=== PATIENT | male | born 1960 | race Caucasian/White ===

== ENCOUNTER → 2017-02-25 | Outpatient (CLI) | payer BC ==
[~2017-02-25] MED LIST: LOSA50TA20 PO; PANT40TA2 PO
[2017-02-25 08:01] LABS: MEAN CORPUSCULAR HGB CONC 33.2 g/dl (32.0-36.5); MEAN CORPUSCULAR VOLUME 99.5 fl (80.0-96.0); RED CELL DISTRIBUTION WIDTH 12.9 % (11.5-14.5); WHITE BLOOD COUNT 8.4 K/mm3 (4.0-10.0)
[2017-02-25 08:42] LABS: ALBUMIN 3.7 GM/DL (3.2-5.2); ALBUMIN/GLOBULIN RATIO 1.03 (1.00-1.93); ALKALINE PHOSPHATASE 247 U/L (45-117); ALT/SGPT 35 U/L (12-78); ANION GAP 3 MEQ/L (8-16); AST/SGOT 17 U/L (15-37); BILIRUBIN,TOTAL 0.5 MG/DL (0.2-1.0); BLOOD UREA NITROGEN 8 MG/DL (7-18); CALCIUM LEVEL 8.8 MG/DL (8.5-10.1); CARBON DIOXIDE LEVEL 32 MEQ/L (21-32); CHLORIDE LEVEL 105 MEQ/L (98-107); CHOLESTEROL LEVEL 199 MG/DL (<200); CREATININE FOR GFR 0.92 MG/DL (0.70-1.30); GLOMERULAR FILTRATION RATE > 60.0 (>56); GLUCOSE, FASTING 109 MG/DL (70-105); POTASSIUM SERUM 4.1 MEQ/L (3.5-5.1); SODIUM LEVEL 140 MEQ/L (136-145); TOTAL PROTEIN 7.3 GM/DL (6.4-8.2); TRIGLYCERIDES LEVEL 161 MG/DL (<150)
--- NOTE | 2017-02-25 08:51 | REP ---
Clinical: Annual health screening . Comparison: 01/29/2014 . Technique: PA and lateral. Findings: The mediastinum and cardiac silhouette are normal. The lung swartz are clear and without acute consolidation, effusion, or pneumothorax. The skeletal structures are intact and normal. Impression: 1. No acute cardiopulmonary process. Signed by Thomas Vasquez MD 02/25/2017 08:42 A
--- NOTE | 2017-02-25 13:54 | ECGEPIP ---
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
== END ==
LOC: M LAB 07:43
PROVIDERS: ATTEND Family Medicine
DX: I10 Essential (primary) hypertension (principal); N40.0 Benign prostatic hyperplasia without lower urinary tract symptoms; R53.83 Other fatigue

== ENCOUNTER 2017-06-13 08:56 | Outpatient (CLI) | payer BC ==
[~2017-06-13] VITALS: Ht 177.8 cm; Wt 86.2 kg
[2017-06-13] MEDS ORDERED: NS 1,000 ML IV ONE (09:15)
[2017-06-13] MEDS ORDERED: LIDOCAINE 2% INJ 100 MG/5 ML SDV (FOR ANES.) As Ordered ONE (10:01)
[2017-06-13] MEDS ORDERED: PROPOFOL 200 MG/20 ML VIAL As Ordered ONE (10:01)
--- NOTE | 2017-06-13 10:19 | ROOR ---
Patient Name: Fernnado Eckert Procedure Date: 06/13/2017 9:56 AM Date of : 1960 Age: 57 Room: [facility] Gender: Male Note Status: Finalized Procedure: Total Colonoscopy to Cecum Indications: Screening for colorectal malignant neoplasm Providers: Emir Bains MD Referring MD: JASWANT LE MD Requesting Provider: Medicines: Monitored Anesthesia Care Complications: No immediate complications. Procedure: Pre-Anesthesia Assessment: - The heart rate, respiratory rate, oxygen saturations, blood pressure, adequacy of pulmonary ventilation, and response to care were monitored throughout the procedure. The Colonoscope was introduced through the anus and advanced to the cecum, identified by appendiceal orifice and ileocecal valve. The colonoscopy was performed without difficulty. The patient tolerated the procedure well. The quality of the bowel preparation was excellent. Findings: The perianal and digital rectal examinations were normal. Non-bleeding internal hemorrhoids were found during retroflexion. The hemorrhoids were small and Grade I (internal hemorrhoids that do not prolapse). Scattered small-mouthed diverticula were found in the recto-sigmoid colon, sigmoid colon and descending colon. The exam was otherwise without abnormality on direct and retroflexion views. Impression: - Non-bleeding internal hemorrhoids. - Diverticulosis in the recto-sigmoid colon, in the sigmoid colon and in the descending colon. - The examination was otherwise normal on direct and retroflexion views. - No specimens collected. - The exam was otherwise normal to the cecum. Recommendation: - Patient has a contact number available for emergencies. The signs and symptoms of potential delayed complications were discussed with the patient. Return to normal activities tomorrow. Written discharge instructions were provided to the patient. - High fiber diet. - Discharge patient to home. - Continue present medications. - Repeat colonoscopy in 10 years for screening purposes. - Return to referring physician. - The findings and recommendations were discussed with the patient's family. Emir Bains MD Emir Bains MD 06/13/2017 10:18:58 AM This report has been signed electronically. Number of Addenda: 0 Note Initiated On: 06/13/2017 9:56 AM Estimated Blood Loss: Estimated blood loss: none.
[2017-06-13 10:38] VITALS: BP 133/79
== END 2017-06-13 10:41 | disposition home or self-care (01) ==
LOC: M OPP 08:56
PROVIDERS: ATTEND Internal Medicine Gastroenterology
DX: Z12.11 Encounter for screening for malignant neoplasm of colon (principal); K64.0 First degree hemorrhoids; K57.30 Diverticulosis of large intestine without perforation or abscess without bleeding; I10 Essential (primary) hypertension; R12 Heartburn; J42 Unspecified chronic bronchitis; R06.2 Wheezing; K82.9 Disease of gallbladder, unspecified; Z79.899 Other long term (current) drug therapy

== ENCOUNTER → 2019-06-29 | Outpatient (CLI) | payer BC ==
[~2019-06-29] MED LIST changes: -LOSA50TA20 PO; +LOSA50TA88 PO; -PANT40TA2 PO; +PANT40TA3 PO
--- NOTE | 2019-06-29 09:02 | REP ---
Two-view chest: 06/29/2019. Indication: Dyspnea. Cough. Comparison: 02/25/2017. Findings: The lungs are clear. There is no pleural effusion or pneumothorax. There is mild straightening of the thoracic kyphosis. The cardiomediastinal silhouette is unremarkable. Impression: Clear lungs. Electronically Signed by Aryan Thomas DO 06/29/2019 08:54 A
[2019-06-29 09:34] LABS: HEMATOCRIT 49.5 % (42.0-52.0); HEMOGLOBIN 15.9 g/dl (13.5-17.5); MEAN CORPUSCULAR HEMOGLOBIN 33.5 pg (27.0-33.0); MEAN CORPUSCULAR HGB CONC 32.1 g/dl (32.0-36.5); MEAN CORPUSCULAR VOLUME 104.2 fl (80.0-96.0); PLATELET COUNT, AUTOMATED 271 10^3/uL (150-450); RED BLOOD COUNT 4.75 10^6/uL (4.30-6.10); WHITE BLOOD COUNT 6.5 10^3/uL (4.0-10.0)
[2019-06-29 10:00] LABS: HEMOGLOBIN A1c 6.6 %
[2019-06-29 10:13] LABS: ALBUMIN 3.8 GM/DL (3.2-5.2); ALT/SGPT 47 U/L (12-78); BILIRUBIN,TOTAL 0.5 MG/DL (0.2-1.0); BLOOD UREA NITROGEN 10 MG/DL (7-18); CALCIUM LEVEL 9.1 MG/DL (8.8-10.2); CARBON DIOXIDE LEVEL 30 MEQ/L (21-32); CHLORIDE LEVEL 105 MEQ/L (98-107); CHOLESTEROL LEVEL 224 MG/DL (<200); CHOLESTEROL RISK RATIO 5.743 (<5); CREATININE FOR GFR 0.96 MG/DL (0.70-1.30); GLOMERULAR FILTRATION RATE > 60.0 (>49); GLUCOSE, FASTING 117 MG/DL (70-100); HDL CHOLESTEROL 39 MG/DL (>40); LDL CHOLESTEROL 149 MG/DL (<100); NON-HDL-C 185 MG/DL; POTASSIUM SERUM 4.6 MEQ/L (3.5-5.1); PROSTATIC SPECIFIC AG MONITOR 0.94 NG/ML (< 4.00); SODIUM LEVEL 140 MEQ/L (136-145); TOTAL PROTEIN 7.6 GM/DL (6.4-8.2); TRIGLYCERIDES LEVEL 178 MG/DL (<150)
[2019-06-29 10:14] LABS: TESTOSTERONE 387 NG/DL (241-827)
--- NOTE | 2019-07-02 21:18 | ECGEPIP ---
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
== END ==
LOC: M LAB 08:05
PROVIDERS: ATTEND Family Medicine
DX: I10 Essential (primary) hypertension (principal)

== ENCOUNTER 2020-10-13 11:48 | Inpatient (IN) | payer BC, OTHER, SELFPAY ==
[~2020-10-13] VITALS: Ht 177.8 cm; Wt 87.7 kg
[~2020-10-13 11:48] MED LIST changes: +PANT40TA29 PO; -PANT40TA3 PO
--- OUTSIDE RECORDS SUMMARY | 2020-10-13 12:19 | CCD ---
Author Author [facility] Organization [facility] Address Unknown Phone Unavailable Care Team Providers Care Combination Building Inspector Name Role Phone Chasidy Desai MD Unavailable Unavailable Chasidy Desai MD Unavailable Unavailable Chasidy Desai MD Unavailable Unavailable Chasidy Desai MD Unavailable Unavailable Chasidy Desai MD Unavailable Unavailable Chasidy Desai MD Unavailable Unavailable Chasidy Desai MD Unavailable Unavailable Chasidy Desai MD Unavailable Unavailable Chasiyd Desai MD Unavailable Unavailable Chasidy Desai MD Unavailable Unavailable Chasidy Desai MD Unavailable Unavailable Chasidy Desai MD Unavailable Unavailable Chasidy Desai MD Unavailable Unavailable Chasidy Desai MD Unavailable Unavailable Chasidy Desai MD Unavailable Unavailable Chasidy Desai MD Unavailable Unavailable Chasidy Desai MD Unavailable Unavailable Chasidy Desai MD Unavailable Unavailable Chasidy eDsai MD Unavailable Unavailable Chasidy Desai MD Unavailable Unavailable Chasidy Desai MD Unavailable Unavailable Chasidy Desai MD Unavailable Unavailable Chasidy Desai MD Unavailable Unavailable Chasidy Desai MD Unavailable Unavailable Chasidy Desai MD Unavailable Unavailable Chasidy Desai MD Unavailable Unavailable Chasidy Desai MD Unavailable Unavailable Chasidy Desai MD Unavailable Unavailable Chasidy Desai MD Unavailable Unavailable Chasidy Desai MD Unavailable Unavailable Chasidy Desai MD Unavailable Unavailable Chasidy Desai MD Unavailable Unavailable Chasidy Desai MD Unavailable Unavailable Desai, Emanuel Moid MD Unavailable Unavailable Desai, Emanuel Moid MD Unavailable Unavailable Desai, Emanuel Moid MD Unavailable Unavailable Desai, Emanuel Moid MD Unavailable Unavailable Desai, Emanuel Moid MD Unavailable Unavailable Desai, Emanuel Moid MD Unavailable Unavailable Desai, Emanuel Moid MD Unavailable Unavailable Desai, Emanuel Moid MD Unavailable Unavailable Desai, Emanuel Moid MD Unavailable Unavailable Desai, Emanuel Moid MD Unavailable Unavailable Desai, Emanuel Moid MD Unavailable Unavailable Desai, Emanuel Moid MD Unavailable Unavailable Desai, Emanuel Moid MD Unavailable Unavailable Desai, Emanuel Moid MD Unavailable Unavailable Desai, Emanuel Moid MD Unavailable Unavailable Desai, Emanuel Moid MD Unavailable Unavailable Desai, Emanuel Moid MD Unavailable Unavailable Desai, Emanuel Moid MD Unavailable Unavailable Desai, Emanuel Moid MD Unavailable Unavailable Desai, Emanuel Moid MD Unavailable Unavailable Desai, Emanuel Moid MD Unavailable Unavailable Desai, Emanuel Moid MD Unavailable Unavailable Desai, Emanuel Moid MD Unavailable Unavailable Desai, Emanuel Moid MD Unavailable Unavailable Desai, Emanuel Moid MD Unavailable Unavailable Desai, Emanuel Moid MD Unavailable Unavailable Desai, Emanuel Moid MD Unavailable Unavailable Desai, Emanuel Moid MD Unavailable Unavailable Desai, Emanuel Moid MD Unavailable Unavailable Desai, Emanuel Moid MD Unavailable Unavailable Desai, Emanuel Moid MD Unavailable Unavailable Desai, Emanuel Moid MD Unavailable Unavailable Re-disclosure Warning The records that you are about to access may contain information from federally-assisted alcohol or drug abuse programs. If such information is present, then the following federally mandated warning applies: This information has been disclosed to you from records protected by federal confidentiality rules (42 CFR part 2). The federal rules prohibit you from making any further disclosure of this information unless further disclosure is expressly permitted by the written consent of the person to whom it pertains or as otherwise permitted by 42 CFR part 2. A general authorization for the release of medical or other information is NOT sufficient for this purpose. The Federal rules restrict any use of the information to criminally investigate or prosecute any alcohol or drug abuse patient.The records that you are about to access may contain highly sensitive health information, the redisclosure of which is protected by Article 27-F of the [facility] Public Health law. If you continue you may have access to information: Regarding HIV / AIDS; Provided by facilities licensed or operated by the [facility] Office of Mental Health; or Provided by the [facility] Office for People With Developmental Disabilities. If such information is present, then the following [facility] mandated warning applies: This information has been disclosed to you from confidential records which are protected by state law. State law prohibits you from making any further disclosure of this information without the specific written consent of the person to whom it pertains, or as otherwise permitted by law. Any unauthorized further disclosure in violation of state law may result in a fine or mcfp sentence or both. A general authorization for the release of medical or other information is NOT sufficient authorization for further disc losure. Family History Family Member Name Family Member Gender Family Member Status Date o f Status Description Data Source(s) Unknown Unknown Problem [facility] ([facility] Encounters Encounter Providers Location Date Indications Data Source(s ) Outpatient Referrer: Citlali Desai MD 09/11/2019 08:52:[facility] Immunizations Vaccine Date Status Description Data Source(s) INFLUENZA VIRUS VACCINE QUADRIVALENT (36 MOS U P)/PF 07/07/2020 12:00:00 AM EST completed [facility] Medications Medication Brand Name Start Date Product Form Dose Route Admi nistrative Instructions Pharmacy Instructions Status Indications Reaction Description Data Source(s) 500 mg 08/23/2019 12:00:00 AM EST capsule 40 TAKE ONE CAPSULE BY MOUTH FOUR TIMES A DAY TAKE ONE CAPSULE BY MOUTH FOUR TIMES A DAY SOLD: 08/23/2019 [facility] Insurance Providers Payer name Policy type / Coverage type Policy ID Covered democrat ID Covered democrat's relationship to perez Policy Perez Plan Information SELF PAY ONLY [id number] SP [id number] [employer] P[place] 302/307 [id number] SP [id number] [employer]LLUS BCBS B [id number] S TNY [id number] BCBS/[employer]cellus Commercial [id number] [place] [id number] BCBS/[place]cell[employer] Commercial [id number] [place] [id number] [place] Commercial [id number] Self [id number] [place]/307 [id number] SP [id number] BCBS/[place] Commercial [id number] Self [place] [id number] [place]PO [place]/307 [id number] SP [id number] [place] PPO 302/307 [id number] SP [id number] BCBS/Excellus Commercial Self EXCELLUS BCBS P [id number] S [id number] [id number] [place] PPO 302/307 [id number] SP [id number]
--- NOTE | 2020-10-13 12:55 | REP ---
INDICATION: blow to leg from cow, severe swelling, bruising. COMPARISON: None. TECHNIQUE: Three views of the right calf, tib fib area. FINDINGS: Three views of the right calf demonstrate transversely oriented fracture through the proximal diaphysis of the tibia with 8 mm of posterior displacement. There is a midshaft fracture of the fibula essentially nondisplaced. Associated swelling.. . No opaque foreign body noted. IMPRESSION: Diaphyseal fractures of the tibia and fibula as described above.. <Electronically signed by Gwyn Dougherty > 10/13/20 [id number]
--- NOTE | 2020-10-13 12:57 | REP ---
INDICATION: pre-op. COMPARISON: Comparison chest x-ray June 29, 2019.. TECHNIQUE: Portable sitting AP chest radiograph. FINDINGS: The lungs are symmetrically aerated and free of infiltrate. Pleural angles are sharp. Heart size is normal. Pulmonary vasculature is not increased. No significant bony abnormality is appreciated. IMPRESSION: No active disease. <Electronically signed by Gwyn Dougherty > 10/13/20 [id number]
[2020-10-13] MEDS ORDERED: MORPHINE 4 MG/ML 1ML VIAL/SYRINGE (J2270) IV ONE (13:45)
[2020-10-13] MEDS ORDERED: ONDANSETRON 4MG/2ML VIAL IV ONE (13:45)
--- NOTE | 2020-10-13 14:05 | REP ---
INDICATION: ro fracture, trauma from cow. COMPARISON: Right tib fib series from earlier today.. TECHNIQUE: Four views of the right ankle are obtained. X-rays through overlying posterior splint material. FINDINGS: Four views of the right ankle demonstrate intact ankle mortise. No distal tibial or fibular fracture is seen. Plantar heel spur. IMPRESSION: No distal tib fib fracture or ankle fracture seen. <Electronically signed by Gwyn Dougherty > 10/13/20 [id number]
[2020-10-13 14:29] LABS: BASO % 0.3 % (0.0-1.0); EOS % 0.1 % (0.0-3.0); HEMATOCRIT 43.6 % (42.0-52.0); HEMOGLOBIN 14.3 g/dl (13.5-17.5); LYMPH # 1.4 10^3/uL (1.5-5.0); LYMPH % 8.5 % (24.0-44.0); MEAN CORPUSCULAR HEMOGLOBIN 32.8 pg (27.0-33.0); MEAN CORPUSCULAR HGB CONC 32.8 g/dl (32.0-36.5); MONO # 0.8 10^3/uL (0.0-0.8); MONO % 4.9 % (0.0-8.0); NEUTROPHILS # 13.6 10^3/uL (1.5-8.5); NEUTROPHILS % 85.6 % (36.0-66.0); PLATELET COUNT, AUTOMATED 264 10^3/uL (150-450); RED BLOOD COUNT 4.36 10^6/uL (4.30-6.10); WHITE BLOOD COUNT 15.9 10^3/uL (4.0-10.0)
--- NOTE | 2020-10-13 14:29 | REP ---
INDICATION: ro fracture, trauma from cow. COMPARISON: Right tib fib series from earlier this date.. TECHNIQUE: Four views of the right knee are presented. FINDINGS: Four views of the right knee taken through posterior splint material demonstrate no evidence of knee fracture or subluxation. There is trabecular and cortical thickening throughout the upper tibia consistent with Paget's disease. There is mild arthritic spurring at the superior pole the patella. No knee fracture is seen.. . No opaque foreign body noted. IMPRESSION: Findings consistent with Paget's disease in the upper half of the tibia. No knee joint fracture seen.. <Electronically signed by Gwyn Dougherty > 10/13/20 [id number]
--- NOTE | 2020-10-13 14:43 | REP ---
INDICATION: per ortho concern of pagets disease ro patholigic fx. COMPARISON: Comparison is made with today's radiographs.. TECHNIQUE: Helical scanning is acquired and 3 mm axial images are generated. Coronal and sagittal MPR images are generated and reviewed. FINDINGS: There is a proximal diaphyseal fracture of the tibia with newly shows posterior displacement of the distal fragment. The posterior displacement measures 12.8 mm. No angulation is seen. On coronal MPR images there is minimal lateral displacement 3-4 mm. There is a comminuted fracture of the fibular midshaft without significant displacement as seen radiographically. There is abnormal cortical thickening and trabecular thickening along with mild anterior bowing in the tibia from the distal diametaphyseal region proximally through the tibial plateau. These changes are indicative of Paget's disease of the tibia. There is some enlargement of the affected bone as well. Cortical and medullary bone density in the fibula is normal. There is no evidence of patellar or distal femoral disease. IMPRESSION: 1. Paget's disease affecting the entire right tibia from distal diametaphyseal region proximally to the tibial plateau. 2. Transverse posteriorly displaced fracture of the proximal tibial diaphysis. 3. Comminuted nondisplaced midshaft fibular fracture. <Electronically signed by Gwyn Dougherty > 10/13/20 [id number]
[2020-10-13 14:49] LABS: ALBUMIN 3.9 GM/DL (3.2-5.2); ALT/SGPT 35 U/L (12-78); BILIRUBIN,DIRECT < 0.1 MG/DL (0.0-0.2); BILIRUBIN,TOTAL 0.2 MG/DL (0.2-1.0); BLOOD UREA NITROGEN 14 MG/DL (7-18); CALCIUM LEVEL 8.9 MG/DL (8.8-10.2); CARBON DIOXIDE LEVEL 29 MEQ/L (21-32); CHLORIDE LEVEL 105 MEQ/L (98-107); CREATININE FOR GFR 0.99 MG/DL (0.70-1.30); GLOMERULAR FILTRATION RATE > 60.0 (>49); GLUCOSE, FASTING 126 MG/DL (70-100); POTASSIUM SERUM 4.3 MEQ/L (3.5-5.1); SODIUM LEVEL 140 MEQ/L (136-145); TOTAL PROTEIN 7.2 GM/DL (6.4-8.2)
[2020-10-13] MEDS ORDERED: ONDANSETRON 4MG/2ML VIAL IV PRN (15:45)
[2020-10-13] MEDS ORDERED: MORPHINE 2 MG/ML 1ML VIAL (J2270) IV PRN ×2 (15:45)
[2020-10-13] MEDS ORDERED: MORPHINE 2 MG/ML 1ML VIAL (J2270) IV ONE (15:45)
[2020-10-13] MEDS ORDERED: ACETAMINOPHEN TAB 650MG DOSE (2X325MG) PO PRN (15:45)
--- OUTSIDE RECORDS SUMMARY | 2020-10-13 16:04 | CCD ---
Author Author [facility] Organization [facility] Address Unknown Phone Unavailable Care Team Providers Care Smoke Jumper Supervisor Name Role Phone Chasidy Desai MD Unavailable [...] Unavailable Chasidy Desai MD Unavailable Unavailable Chasidy Desia MD Unavailable Unavailable Chasidy Desai MD Unavailable Unavailable Chasidy Desai MD Unavailable Unavailable Chasidy Desai MD Unavailable Unavailable Chasidy Desai MD Unavailable Unavailable Chasidy Desai MD Unavailable Unavailable Chasidy Desai MD Unavailable Unavailable Chasidy Desai MD Unavailable Unavailable Chasidy Desai MD Unavailable Unavailable Chasdiy Desai MD Unavailable Unavailable Chasidy Desai MD [...] Desai, Emanuel Moid MD Unavailable Unavailable Desai, Meanuel Moid MD Unavailable Unavailable Desai, Emanuel Moid [...] Unavailable Desai, Emanuel Moid MD Unavailable Unavailable SYSTEM IN, NOT IN PROVIDER Unavailable Unavailable Re-disclosure Warning The records that [...] is protected by Article 27-F of the [facility] Public Health law. If you continue you may have access to information: Regarding HIV / AIDS; Provided by facilities licensed or operated by the [facility] Office of Mental Health; or Provided by the [facility] Office for People With Developmental Disabilities. If such information is present, then the following [facility] mandated warning applies: This information has been [...] law may result in a fine or prison sentence or both. A general authorization for the release of medical or other information is NOT sufficient authorization for further disc losure. Family History Family Member Name Family Member Gender Family Member Status Date o f Status Description Data Source(s) Unknown Unknown Problem [facility] ([facility]) Encounters Encounter Providers Location Date Indications Data Source(s ) Outpatient Referrer: PROVIDER SYSTEM [place] 10/13/2020 0 1:47:00 PM EST transverse fracture Rt tib/fib [facility] transverse fracture Rt tib/fib Outpatient Referrer: Citlali Desai MD 09/11/2019 08:52:00 PM [facility] Immunizations Vaccine Date Status [...] MOUTH FOUR TIMES A DAY SOLD: 08/23/2019 [facility] Insurance Providers Payer name Policy type / Coverage type Policy ID Covered green party ID Covered green party's relationship to perez Policy Perez Plan Information SELF PAY ONLY [id number] SP [id number] [employer] PPO 302/307 [id number] SP [id number] EXCELLUS BCBS B [id number] S TNY [id number] BCBS/[employer] Commercial [id number] Self [place] [id number] BCBS/[employer]cell[employer] Commercial [id number] Self [place] [id number] BS Of [place] Commercial [id number] Self [id number] [place] PPO 302/307 [id number] SP [id number] BCBS/[employer]cellus Commercial [id number] Self [place] [id number] [place] PPO 302/307 [id number] SP [id number] BC[place] PPO 302/307 [id number] SP [id number] BCBS/Excellus Commercial Self [employer]LLUS BCBS P [id number] S VYS [id number] [place]BS [place] PPO 302/307 [id number] SP [id number] Problems, Conditions, and Diagnoses Code Display Name Description Problem Type Effective Dates Data Source(s) transverse fracture Rt tib/fib transverse fracture Rt tib/fib Diagnosis 10/13/2020 01:47:00 PM [facility] Vital Signs ID Date Data Source [id number] 10/13/2020 01:47:55 PM [facility] Name Value Range Interpretation Code Description Data Source(s) TRANSFER FROM [facility]
--- NOTE | 2020-10-13 16:17 | ER ---
ER CONSULTATION DATE: 10/13/2020 REASON FOR CONSULTATION: HISTORY OF PRESENT ILLNESS: The patient was not seen, but I was contacted from the Emergency Room about an injury where the patient was struck by a farm animal, I believe, a cow. He sustained a transverse proximal tibia shaft fracture and a mid shaft tibular fracture. The patient after reviewing the x-rays has significant deformity of his tibia and a subsequent CT showed evidence of Paget's disease which has likely contributed to his bowing of his tibia. I recommended transfer to a higher level of care as this is a very complicated fracture in a patient with Paget's disease that may need complex fixation. I think this is something is best handled in a trauma center. I guess additionally it sounds like it was a quite high energy injury. In addition, I do not have privileges for rodding long bone fractures. I think this is going to be best handled in a trauma facility. A subsequent CT scan did show evidence of Paget's disease. LOPEZ
--- NOTE | 2020-10-13 16:35 | HPEPDOC ---
[facility] Medical History & Physical Date of Admission Oct 13, 2020 Date of Service: Oct 13, 2020 Attending Physician: Mirna Patel MD History and Physical CHIEF COMPLAINT: Right leg pain HISTORY OF PRESENT ILLNESS: Patient is a 60-year-old male with past medical history of acid reflux, hypertension resulted to [facility] after having had his right leg trampled on by a cow early this morning. As per the patient he was helping dinh several cows into a vehicle when the door flung open and he fell backwards. No ran on top of his right leg and he felt immediate right lower extremity pain. He states he could not move that leg but denied numbness and tingling. Aside from severe pain he denied chest pain, shortness of breath, fevers, chills, recent illnesses, abdominal pain, nausea, vomiting, lightheadedness or dizziness. He was brought to the emergency room via ambulance to be further assessed. In the emergency room, vital signs were stable. Labs showed leukocytosis 15.9, all other labs were unremarkable. The patient had several x-rays and CT RLE. CT showed :1. Paget's disease affecting the entire right tibia from distal diametaphyseal region proximally to the tibial plateau. 2. Transverse posteriorly displaced fracture of the proximal tibial diaphysis. 3. Comminuted nondisplaced midshaft fibular fracture. Orthopedic surgery was called and suggested surgery, admission under medicine service. REVIEW OF SYSTEMS: Neg except mentioned above PAST MEDICAL HISTORY: GERD HTN PAST SURGICAL HISTORY: Cholecystectomy FAMILY HISTORY: No significant family history SOCIAL HISTORY: As alcohol, drug or smoking history. The patient is retired and owns a horse far m. Active and does not use any devices or assistance to ambulate. He follows with his primary care doctor annually. He is a full code. ALLERGIES: Please see below. HOME MEDICATIONS: Please see below. PHYSICAL EXAMINATION: VS: Please see below CONSTITUTIONAL: No acute distress, resting comfortably, AAO x 3 EYES: PERRLA, EOM intact HENT, MOUTH: Normocephalic, atraumatic, moist mucous membranes, NECK: SUPPLE, no JVD, no lymphadenopathy, no carotid bruit CV: Regular rate and rhythm, S1S2 normal, no murmurs/rubs/gallops RESPIRATORY: Clear to auscultation bilaterally, no rales/rhonchi/wheezes GI: BS positive in 4 quadrants, soft, nontender, nondistended, no rebound or guarding, no organomegaly : Deferred MUSCULOSKELETAL: Proximal tibial deformity with tenderness, swelling. ROM not te sted of RLE. No cyanosis, clubbing, swelling INTEGUMENTARY: Intact, no rashes, no lesions, no erythema NEUROLOGIC: Cranial Nerves II-XII are intact, no focal deficits, sensory and motor intact PSYCHIATRIC: Mood and affect are normal LABORATORY DATA: Please see below IMAGING: CT RLE: 1. Paget's disease affecting the entire right tibia from distal diametaphyseal region proximally to the tibial plateau. 2. Transverse posteriorly displaced fracture of the proximal tibial diaphysis. 3. Comminuted nondisplaced midshaft fibular fracture. ASSESSMENT: 60-year-old male with past medical history of acid reflux, hypertension admitted for transverse posteriorly displaced fracture of the right proximal tibial diaphysis and comminuted nondisplaced midshaft right fibular fracture s/p trauma . PLAN: Transverse posteriorly displaced fracture of the right proximal tibial diaphysis and comminuted nondisplaced midshaft right fibular fracture s/p trauma in -New diagnosis of Paget's disease of bone, making patient more vulnerable for injury. See problem below for plan . -NPO status for surgery tonight vs. early AM -Pain control with morphine IV PRN, zofran PRN -Bedrest for now, NWB -Orthopedic surgery (Dr. Tejada) consulted Paget's disease of bone, new diagnosis as of today -Seen on CT RLE -Serum alkaline phosphatase is elevated at 245 -Calcium normal so no need for PTH -Patient will need baseline bone scan to document the extent and locations of skeletal involvement. Perhaps this information can be relayed to PCP prior to discharge. GERD -PPI IV DVT px -Holding for now due to surgery, teds, SCDs. Start on AC as soon as possible. DISPOSITION: Admitted under inpatient status. Orthopedic surgery to see. Plan is likely d/c home vs. rehab on discharge. Vital Signs Vital Signs Date Time Temp Pulse Resp B/P (MAP) Pulse Ox O2 Delivery O2 Flow Rate FiO2 10/13/20 15:47 16 98 Room Air 10/13/20 12:46 99.5 94 162/82 (108) Laboratory Data Labs 24H Laboratory Tests 2 10/13/20 13:53: Coronavirus (COVID-19)(PCR) NEGATIVE 10/13/20 14:02: Immature Granulocyte % (Auto) 0.6, Neutrophils (%) (Auto) 85.6H, Lymphocytes (%) (Auto) 8.5L, Monocytes (%) (Auto) 4.9, Eosinophils (%) (Auto) 0.1, Basophils (%) (Auto) 0.3, Neutrophils # (Auto) 13.6H, Lymphocytes # (Auto) 1.4L, Monocytes # (Auto) 0.8, Eosinophils # (Auto) 0.0, Basophils # (Auto) 0.0, Nucleated Red Blood Cells % (auto) 0.0, Anion Gap 6L, Glomerular Filtration Rate > 60.0, Calcium Level 8.9, Total Bilirubin 0.2, Direct Bilirubin < 0.1, Aspartate Amino Transf (AST/SGOT) 20, Alanine Aminotransferase (ALT/SGPT) 35, Alkaline Phosphatase 245H, Total Protein 7.2, Albumin 3.9, Albumin/Globulin Ratio 1.2 CBC/BMP Laboratory Tests 10/13/20 14:02 Home Medications Scheduled Losartan Potassium (Losartan Potassium) 50 Mg Tab, 50 MG PO DAILY Pantoprazole Sodium (Pantoprazole Sodium) 40 Mg Tab, 40 MG PO DAILY Allergies Coded Allergies: No Known Allergies (Unverified , 06/08/17) A-FIB/CHADSVASC A-FIB History Current/History of A-Fib/PAF?: No Current PO Anticoag Therapy: No Age/Risk Factor Scoring CHADSVASC: CHADSVASC Response (Comments) Value Age Risk Factor Age < 65 years old 0 Gender Risk Factor Male 0 Hx of CHF No 0 Hx of HTN Yes 1 Hx of Stroke/TIA/or VTE No 0 Hx of Diabetes No 0 Hx of Vascular Disease No 0 Total 1 Treatment Treatment ordered: Holding Other Other anticoagulant ordered: holding for surgery Mirna Patel MD Oct 13, 2020 16:35
[2020-10-13] MEDS: LR 1,000 ML IV SCH (16:51)
[2020-10-13 17:15] VITALS: BP 153/96
[2020-10-13 17:44] LABS: PTH INTACT 66.5 PG/ML (18.5-88.0)
[2020-10-13] MEDS ORDERED: ROLA1CHW PO (18:06)
[2020-10-13 22:00] VITALS: BP 146/86
[2020-10-14] MEDS: LR 1,000 ML IV SCH (01:45)
[2020-10-14 06:00] VITALS: BP 134/83
[2020-10-14 06:03] LABS: HEMATOCRIT 42.8 % (42.0-52.0); HEMOGLOBIN 14.1 g/dl (13.5-17.5); MEAN CORPUSCULAR HEMOGLOBIN 33.2 pg (27.0-33.0); MEAN CORPUSCULAR HGB CONC 32.9 g/dl (32.0-36.5); MEAN CORPUSCULAR VOLUME 100.7 fl (80.0-96.0); PLATELET COUNT, AUTOMATED 231 10^3/uL (150-450); RED BLOOD COUNT 4.25 10^6/uL (4.30-6.10); WHITE BLOOD COUNT 8.8 10^3/uL (4.0-10.0)
[2020-10-14 06:33] LABS: ALBUMIN 3.3 GM/DL (3.2-5.2); ALT/SGPT 30 U/L (12-78); BILIRUBIN,TOTAL 0.6 MG/DL (0.2-1.0); BLOOD UREA NITROGEN 10 MG/DL (7-18); CALCIUM LEVEL 8.6 MG/DL (8.8-10.2); CARBON DIOXIDE LEVEL 29 MEQ/L (21-32); CHLORIDE LEVEL 105 MEQ/L (98-107); CREATININE FOR GFR 0.92 MG/DL (0.70-1.30); GLOMERULAR FILTRATION RATE > 60.0 (>49); GLUCOSE, FASTING 99 MG/DL (70-100); POTASSIUM SERUM 4.4 MEQ/L (3.5-5.1); SODIUM LEVEL 140 MEQ/L (136-145); TOTAL PROTEIN 6.6 GM/DL (6.4-8.2)
[2020-10-14] MEDS: PANTOPRAZOLE 40MG VIAL (C9113 PER 1) IV SCH (08:57)
--- NOTE | 2020-10-14 11:03 | ER ---
ER CONSULTATION DATE: 10/13/2020 TIME: 5:00 PM CONSULTING PHYSICIAN: Alan Tejada MD HISTORY OF PRESENT ILLNESS: This is a 60-year-old male with a closed proximal tibial shaft fracture with concomitant Paget's disease diagnosed today, The patient is with a past medical history of acid reflux and hypertension. He came to the [facility] Emergency Department after being trampled by a cow while loading it under a dinh this morning. The patient states that he had difficulty moving his right leg but denied any numbness or tingling. The patient had right lower extremity pain and inability to bear weight, however he denies chest pain, shortness of breath, fevers, chills, recent illnesses, abdominal pain, nausea, vomiting, lightheadedness or dizziness. He was brought to the [facility] E.R. for further evaluation and treatment. Orthopedic Surgery was consulted for aforementioned injury. PAST MEDICAL HISTORY: The patient's past medical history is significant for: 1. Gastroesophageal reflux disease. 2. Hypertension. PAST SURGICAL HISTORY: The patient's past surgical history is significant for cholecystectomy. FAMILY HISTORY: Denies. 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 He community ambulated without assistive devices. He denies alcohol, drugs or smoking history. HOME MEDICATIONS: Please see Medicine note. REVIEW OF SYSTEMS: A 14 point review of systems was negative unless otherwise described in the HPI above. PHYSICAL EXAMINATION: GENERAL APPEARANCE: He is alert and oriented to person, time and place. EXTREMITIES: Right lower extremity the patient had a soft compartment, very minimal edema. No ecchymosis and no skin breaks. He had tenderness to palpation about the proximal tibia. The patient's posterior splint was clean, dry and intact. His radial extremities are otherwise neurovascularly intact. He had 5/5 motor strength to the EHL, FHL, tibialis, anterior gastrocnemius. Perineal and musculature, he had sensation intact to light touch to the deep and superficial gastrocnemius, sacrospinous and tibial nerve distributions. He had 2+ dorsalis pedis and posterior tibial arterial pulse. Brisk capillary refill of the digits. He had a warm and well perfused foot. IMAGING DATA: Radiographs demonstrated a transverse proximal tibial shaft fracture with concomitant Paget's disease. He has a very mild anterior tibial bow to his right lower extremity. CT scan confirmed the following in addition to his Paget's disease which is very characteristic osseous findings to include: an anterior tibial bow. IMPRESSION: A 60-year-old male with a right proximal closed tibial shaft fracture with concomitant Paget's disease. This is a closed injury. PLAN: At this point in time the patient has been splinted in a posterior slab splint. He is resting comfortably without any signs of compartment syndrome. The patient I believe will do best with an intramedullary nail to the right tibial shaft, given his Paget's disease and very mild anterior tibial bow, we will require special reamers to insure that we are able to ream his narrow canal to include humeral reamers. In addition, we will also require potentially using an 8 mm tibial nail which must be ordered and sent from [place]. Given these restraints, the patient's surgery will not be done until Tuesday, the 15 of October at 5:00 p.m. Given his right tibial shaft fracture, this is non-emergent, however given the clinical situation and surgical technical restraints, we will proceed on Tuesday the September. The patient was counseled on the aforementioned. He will be non-weight bearing until after his surgery and he will be n.p.o. at 9:00 a.m. on the September. The patient was counseled on the risks and benefits of surgery and include nerve damage, blood loss, infection, . Despite these risks, the patient would like to proceed with surgery to enable accelerated rehabilitation. LOPEZ
[2020-10-14] MEDS ORDERED: PERCOCET 5MG/325MG TAB PO PRN ×3 (12:00)
[2020-10-14 13:32] VITALS: BP 158/78
--- NOTE | 2020-10-14 13:56 | IPN ---
PROGRESS NOTE DATE: 10/14/2020 SUBJECTIVE: Patient seen and examined at the bedside. Chart has been reviewed. Patient complains of 6/10 pain when he tries to move the right lower extremity. He was able to sleep last night with intravenous (IV) morphine as needed. No complaints of chest pain, pressure, tightness, lightheadedness, or dizziness overnight. Patient has been resumed on an oral diet today due to surgery being postponed until tomorrow once the equipment from [place] has arrived. Patient otherwise denies any chest pain, pressure, tightness, lightheadedness, dizziness. OBJECTIVE: PHYSICAL EXAMINATION: VITAL SIGNS: Temperature 98.4, pulse 85, respiratory rate 18, blood pressure 134/83, 94% on room air. GENERAL: Patient is awake, alert, oriented to person, place, and time, answering questions appropriately. Face is symmetric, Tongue is midline. Moist mucous membranes. No jugular venous distention (JVD). No thyromegaly. LUNGS: Clear to auscultation. No wheezing, rales or rhonchi. HEART: S1, S2, sinus rhythm. No murmurs, rubs, or gallops. ABDOMEN: Obese, soft, nontender, nondistended. Positive bowel sounds times four quadrants. No rebound or guarding. Right lower extremity has no cyanosis, clubbing, no pitting edema. Range of motion not tested secondary to severe pain. Some tenderness and soft tissue swelling of the proximal tibial and fibular area. LABORATORY DATA: White count 8.8, hemoglobin 14, hematocrit 42, platelet count 231. Sodium 140, potassium 4.4, chloride 105, bicarbonate 29, BUN 10, creatinine 0.92, glucose 99, calcium 8.6. Total bilirubin 0.6, AST 19, ALT 30, alkaline phosphatase 230, total protein 6.6, albumin 3.3. PTH normal at 66.5. Albumin/globulin ratio of 1. IMAGING STUDIES: CT extremity 10/13/2020: Paget's disease affecting the entire right tibia with distal diametaphyseal region proximally to the tibial plateau. Transverse posteriorly displaced fracture of the proximal tibial diaphysis. Comminuted nondisplaced midshaft fibular fracture. Chest x-ray 10/13/2020: No active disease. ASSESSMENT AND PLAN: This is a 60-year-old male with a history of hypertension, reflux, admitted for right tibia-fibular fracture, found to have Paget's disease of the bone with elevated alkaline phosphatase. IMPRESSION: 1. Medical clearance. Patient is medically optimized to proceed to surgery. He has been type and screened and will most likely need blood transfusion during and after surgery due to increased risk of bleeding with Paget's disease. 2. Right tibia-fibula fracture. Orthopedic surgeon, Dr. Tejada is waiting for equipment to arrive from [place]. Patient will be scheduled for surgery tomorrow morning. Patient will be kept nothing by mouth after midnight. IV fluids and hypoglycemic protocol to start at 5 a.m. on 10/15/2020. Currently bedrest. IV morphine for breakthrough pain and Percocet one to two tablets as needed for pain. 3. Hypertension, controlled. Currently on no medications. 4. Gastroesophageal reflux disease. No acute reflux symptoms. On Protonix 40 IV daily. 5. Deep venous thrombosis (DVT) prophylaxis. Compression stockings for now. Patient is preop tomorrow. 6. Paget's disease of the bone. increased risk of bleeding and will need rbc transfusion tomorrow. PTH normal and elevated alk phos not due to hyperparathyroidism. calcium wn-does not need iv zolendronate at this time. MTDD
[2020-10-14] MEDS: PERCOCET 5MG/325MG TAB PO PRN (20:55)
[2020-10-14 21:17] VITALS: BP 155/87
[2020-10-15] MEDS: PERCOCET 5MG/325MG TAB PO PRN ×2 (04:49→11:59)
[2020-10-15] MEDS: D5W/0.45% SODIUM CHLORIDE 1,000 ML IV SCH (06:00)
[2020-10-15 06:03] VITALS: BP 155/96
[2020-10-15 06:31] LABS: HEMATOCRIT 43.8 % (42.0-52.0); HEMOGLOBIN 14.1 g/dl (13.5-17.5); MEAN CORPUSCULAR HEMOGLOBIN 32.2 pg (27.0-33.0); MEAN CORPUSCULAR HGB CONC 32.2 g/dl (32.0-36.5); PLATELET COUNT, AUTOMATED 236 10^3/uL (150-450); RED BLOOD COUNT 4.38 10^6/uL (4.30-6.10); WHITE BLOOD COUNT 8.2 10^3/uL (4.0-10.0)
[2020-10-15 06:54] LABS: ALBUMIN 3.3 GM/DL (3.2-5.2); ALT/SGPT 28 U/L (12-78); BILIRUBIN,TOTAL 0.5 MG/DL (0.2-1.0); BLOOD UREA NITROGEN 10 MG/DL (7-18); CALCIUM LEVEL 8.6 MG/DL (8.8-10.2); CARBON DIOXIDE LEVEL 28 MEQ/L (21-32); CHLORIDE LEVEL 106 MEQ/L (98-107); GLOMERULAR FILTRATION RATE > 60.0 (>49); GLUCOSE, FASTING 112 MG/DL (70-100); SODIUM LEVEL 140 MEQ/L (136-145); TOTAL PROTEIN 6.8 GM/DL (6.4-8.2)
[2020-10-15] MEDS: PANTOPRAZOLE 40MG VIAL (C9113 PER 1) IV SCH (09:02)
--- NOTE | 2020-10-15 10:28 | IPNPDOC ---
Date Seen The patient was seen on 10/15/20. Progress Note SUBJECTIVE: Patient seen and examined at the bedside. Chart has been reviewed. 10/08 discomfort when he is not moving. no c/o cp, sob, fever, chills, cough overnight. npo on ivfluids. OBJECTIVE: PHYSICAL EXAMINATION: VITAL SIGNSsee below GENERAL: Patient is awake, alert, oriented to person, place, and time, answering questions appropriately. lying in bed with 30 degree HOB elevation Face is symmetric, Tongue is midline. Moist mucous membranes. No jugular venous distention (JVD). No thyromegaly. LUNGS: Clear to auscultation. No wheezing, rales or rhonchi. HEART: S1, S2, sinus rhythm. No murmurs, rubs, or gallops. ABDOMEN: Obese, soft, nontender, nondistended. Positive bowel sounds times four quadrants. No rebound or guarding. Right lower extremity has no cyanosis, clubbing, no pitting edema. Range of motion not tested secondary to severe pain. Some tenderness and soft tissue swelling of the proximal tibial and fibular area. LABORATORY DATA: reviewed IMAGING STUDIES: CT extremity 10/13/2020: Paget's disease affecting the entire right tibia with distal diametaphyseal region proximally to the tibial plateau. Transverse posteriorly displaced fracture of the proximal tibial diaphysis. Comminuted nondisplaced midshaft fibular fracture. Chest x-ray 10/13/2020: No active disease. ASSESSMENT AND PLAN: This is a 60-year-old male with a history of hypertension, reflux, admitted for right tibia-fibular fracture, found to have Paget's disease of the bone with elevated alkaline phosphatase. IMPRESSION: 1. Medical clearance. Patient is medically optimized to proceed to surgery. no prior h/o cad/mi/chf. clinicallystable. pt will need rbc transfusion after surgery due to increased risk of bleeding with paget's disease of the bone. 2. Right tibia-fibula fracture. Orthopedic surgeon, Dr. Tejada has scheduled pt's surgery for after 5pm today. npo after breakfast this morning on ivfluids. bed rest/ hypoglycemic protocol, velazquez catheter and prn iv morphine for pain 3. Hypertension, controlled. 4. Gastroesophageal reflux disease. 5. Deep venous thrombosis (DVT) prophylaxis. Compression stockings for now. 6. Paget's disease of the bone. increased risk of bleeding and will need rbc transfusion tomorrow. PTH normal and elevated alk phos not due to hyperparathyroidism. calcium wnl-does not need iv zolendronate at this time. VS, I&O, 24H, Fishbone Vital Signs/I&O Vital Signs Date Time Temp Pulse Resp B/P (MAP) Pulse Ox O2 Delivery O2 Flow Rate FiO2 10/15/20 06:03 97.7 70 18 155/96 (115) 94 Room Air I&O- Last 24 Hours up to 6 AM 10/15/20 06:00 Intake Total 1240 ml Output Total 1725 ml Balance -485 ml Laboratory Data 24H LABS Laboratory Tests 2 10/15/20 06:14: Nucleated Red Blood Cells % (auto) 0.0, Anion Gap 6L, Glomerular Filtration Rate > 60.0, Calcium Level 8.6L, Total Bilirubin 0.5, Aspartate Amino Transf (AST/SGOT) 17, Alanine Aminotransferase (ALT/SGPT) 28, Alkaline Phosphatase 22 5H, Total Protein 6.8, Albumin 3.3, Albumin/Globulin Ratio 0.9 CBC/BMP Laboratory Tests 10/15/20 06:14 MELISA KUNZ MD Oct 15, 2020 10:28
[2020-10-15 14:00] VITALS: BP 156/92
[2020-10-15] MEDS ORDERED: ROCURONIUM BROMIDE 50 MG/5 ML VIAL As Ordered ONE (17:27)
[2020-10-15] MEDS ORDERED: LIDOCAINE 2% 100MG/5ML SDV (FOR ANES.) As Ordered ONE (17:27)
[2020-10-15] MEDS ORDERED: propofoL 200 MG/20 ML VIAL As Ordered ONE (17:27)
[2020-10-15] MEDS ORDERED: METOCLOPRAMIDE INJ 10MG/2ML VIAL (J2765 PER 1) As Ordered ONE (17:27)
[2020-10-15] MEDS ORDERED: ONDANSETRON 4MG/2ML VIAL As Ordered ONE (17:27)
[2020-10-15] MEDS ORDERED: fentaNYL 100 MCG/2 ML INJECTION (J3010) As Ordered ONE ×2 (17:28→22:32)
[2020-10-15] MEDS ORDERED: MIDAZOLAM INJ 2MG/2ML VIAL (J2250 PER 1MG) As Ordered ONE (17:28)
[2020-10-15] MEDS ORDERED: TRANEXAMIC ACID 100 MG/ML 10ML VIAL As Ordered ONE ×2 (17:34→20:34)
[2020-10-15] MEDS ORDERED: ceFAZolin 2 GM/D5W 50 ML IV BAG (J0690 PER 500MG) As Ordered ONE (17:34)
[2020-10-15] MEDS ORDERED: HYDROmorphone HCL 2 MG/ML 1ML VIAL (J1170) As Ordered ONE (18:29)
[2020-10-15] MEDS ORDERED: ACETAMINOPHEN 1000MG 100ML IV BTL (OFIRMEV) (J0131 PER 10MG) As Ordered ONE (18:29)
[2020-10-15] MEDS ORDERED: dexameTHASONE 4 MG/ML 1ML VIAL (J1100 PER 1MG) As Ordered ONE (18:33)
[2020-10-15] MEDS ORDERED: LABETALOL 100MG/20ML VIAL As Ordered ONE ×2 (18:35→22:19)
[2020-10-15] MEDS ORDERED: SUGAMMADEX SODIUM 500 MG/5 ML VIAL (BRIDION) As Ordered ONE (18:38)
[2020-10-15] MEDS ORDERED: LR 1,000 ML IV SCH (22:00)
[2020-10-15] MEDS ORDERED: ONDANSETRON 4MG/2ML VIAL IV PRN (22:00)
[2020-10-15] MEDS ORDERED: oxyCODONE 5MG TAB PO PRN (22:00)
[2020-10-15] MEDS: LABETALOL 100MG/20ML VIAL IV PRN ×5 (22:21→22:51)
[2020-10-15] MEDS: fentaNYL 100 MCG/2 ML INJECTION (J3010) IV PRN ×2 (22:31→22:40)
[2020-10-15] MEDS ORDERED: HYDROMORPHONE HCL 0.5 MG/ 0.5 ML SYRINGE (J1170 PER 1) As Ordered ONE (22:46)
[2020-10-15] MEDS: HYDROMORPHONE HCL 0.5 MG/ 0.5 ML SYRINGE (J1170 PER 1) IV PRN ×2 (22:48→23:00)
[2020-10-15 23:35] VITALS: BP 161/87
[2020-10-16] VITALS (9 sets, daily range): BP systolic 139–157; BP diastolic 78–88; O2SAT 97–99
[2020-10-16] MEDS: D5W/0.45% SODIUM CHLORIDE 1,000 ML IV SCH (00:23)
[2020-10-16] MEDS: PERCOCET 5MG/325MG TAB PO PRN ×5 (00:59→21:07)
[2020-10-16] MEDS ORDERED: ONDANSETRON 4MG/2ML VIAL IV PRN (01:00)
[2020-10-16] MEDS ORDERED: PERCOCET 5MG/325MG TAB PO PRN (01:00)
[2020-10-16] MEDS ORDERED: ACETAMINOPHEN TAB 650MG DOSE (2X325MG) PO PRN (01:00)
[2020-10-16] MEDS ORDERED: MORPHINE 2 MG/ML 1ML VIAL (J2270) IV PRN ×2 (01:00)
[2020-10-16] MEDS ORDERED: D5W/0.45% SODIUM CHLORIDE 1,000 ML IV SCH (01:00)
--- NOTE | 2020-10-16 04:16 | REP ---
INDICATION: RIGHT TIBIAL NAIL SUPRAPATELLAR. COMPARISON: None. TECHNIQUE: Intraoperative fluoroscopic imaging using portable C-arm technique. FINDINGS: Patient is noted to be status post satisfactory reduction and intramedullary atiya placement for transverse tibial shaft fracture. Relatively nondisplaced fibular shaft fracture identified. Total fluoroscopic time 300.8 seconds IMPRESSION: Satisfactory intramedullary atiya placement and reduction for tibial shaft fracture. Nondisplaced fibular shaft fracture noted. <Electronically signed by Thomas Vasquez > 10/16/20 0418
[2020-10-16 06:43] LABS: HEMATOCRIT 39.4 % (42.0-52.0); HEMOGLOBIN 12.9 g/dl (13.5-17.5); MEAN CORPUSCULAR HEMOGLOBIN 32.7 pg (27.0-33.0); MEAN CORPUSCULAR HGB CONC 32.7 g/dl (32.0-36.5); MEAN CORPUSCULAR VOLUME 99.7 fl (80.0-96.0); PLATELET COUNT, AUTOMATED 227 10^3/uL (150-450); RED BLOOD COUNT 3.95 10^6/uL (4.30-6.10); WHITE BLOOD COUNT 9.7 10^3/uL (4.0-10.0)
[2020-10-16 07:13] LABS: ALBUMIN 2.9 GM/DL (3.2-5.2); ALT/SGPT 35 U/L (12-78); BILIRUBIN,TOTAL 0.5 MG/DL (0.2-1.0); BLOOD UREA NITROGEN 11 MG/DL (7-18); CALCIUM LEVEL 8.4 MG/DL (8.8-10.2); CARBON DIOXIDE LEVEL 28 MEQ/L (21-32); CHLORIDE LEVEL 102 MEQ/L (98-107); CREATININE FOR GFR 0.94 MG/DL (0.70-1.30); GLOMERULAR FILTRATION RATE > 60.0 (>49); GLUCOSE, FASTING 163 MG/DL (70-100); POTASSIUM SERUM 4.4 MEQ/L (3.5-5.1); SODIUM LEVEL 137 MEQ/L (136-145); TOTAL PROTEIN 6.4 GM/DL (6.4-8.2)
[2020-10-16] MEDS: PANTOPRAZOLE 40MG VIAL (C9113 PER 1) IV SCH (08:46)
--- NOTE | 2020-10-16 09:19 | IPN ---
PROGRESS NOTE DATE: 10/16/2020 SUBJECTIVE: Patient was seen and examined at the bedside. Chart has been reviewed. Overnight, patient says his pain has been controlled on current as needed morphine and Percocet. He denies any bleeding. No chest pain, pressure, tightness, or shortness of breath this morning. OBJECTIVE: PHYSICAL EXAMINATION: Vital signs: Temperature 97.3, pulse 87, respiratory rate 18, blood pressure 145/82, 96% on 2 liters nasal cannula. Generally: Patient is asleep but easily arousable, answers questions appropriately, awake, alert, oriented to person, place, and time. No respiratory distress, cyanosis, or pallor. HEENT: Dry mucous membranes. No jugular venous distension (JVD), thyromegaly, or cervical lymphadenopathy. Lungs: Clear to auscultation. No wheezing, rales, or rhonchi. Heart: S1, S2, sinus rhythm. No murmurs, rubs, or gallops. No carotid bruit. Abdomen: Soft, nontender, nondistended. Positive bowel sounds times four quadrants. No rebound or guarding. No hepatosplenomegaly. Extremities: Postoperative right lower extremity, skin warm, dry, well-perfused, pink in color. Left lower extremity no pitting edema. LABORATORY DATA: White count 9.7, hemoglobin 12, hematocrit 39, platelet count 227, sodium 137, potassium 4.4, chloride 102, bicarbonate 28, BUN 11, creatinine 0.94, glucose 163, calcium 8.4, total bilirubin 0.5, AST 26, ALT 35, alkaline phosphatase 195, total protein 6.4, albumin 2.9. IMAGING STUDIES: 10/15/2020 fluoroscopic guidance, satisfactory intramedullary atiya placement and reduction of tibial shaft fracture, nondisplaced fibular shaft fracture noted. ASSESSMENT AND PLAN: This is a 60-year-old male with history of hypertension, gastroesophageal reflux disease, had a mechanical fall and subsequently found to have a right distal metaphyseal region tibial plateau fracture and transverse posteriorly displaced fracture of the proximal tibial diaphysis and comminuted nondisplaced midshaft fibular fracture and Paget's disease with elevated alkaline phosphatase but normal calcium. CURRENT ISSUES: Are as follows: 1. Right tibia-fibula fracture status post fall. Patient underwent right intramedullary atiya placement on 10/15/2020 with right tibial nail in the suprapatellar area. Postoperative management per orthopaedic surgery including activity level, bowel regimen, pain medications, and deep venous thrombosis (DVT) prophylaxis. Pain is currently controlled on Percocet 1-2 tablets every 4 and every 6 hours, Tylenol, and morphine for breakthrough pain 1-3 mg as needed every 6 hours. 2. Paget's disease of the bone. Patient is at risk for increased bleeding, bone pain, and fractures. Outpatient referral to nicu rn. Calcium level still within normal limits. Patient does not require alendronate at this time. 3. Gastroesophageal reflux disease. On chronic Protonix. 4. Hypertension. Currently controlled. DISPOSITION: Acute rehabilitation unit (ARU) screen.
--- NOTE | 2020-10-16 11:23 | RO ---
OPERATIVE NOTE DATE OF OPERATION: 10/15/2020 TIME: 6 p.m. PREOPERATIVE DIAGNOSIS: 1. Paget's disease with an anterior tibial bow of the right leg. 2. Right tibial shaft fracture. 3. Right mid-shaft fibular fracture. POSTOPERATIVE DIAGNOSIS: 1. Paget's disease with an anterior tibial bow of the right leg. 2. Right tibial shaft fracture. 3. Right mid-shaft fibular fracture. PROCEDURE: Right tibial nail intramedullary placement. SURGEON: Alan Tejada MD CUSTOMER ENGAGEMENT REPRESENTATIVE: None. SUPERVISING ATTENDING: Alan Tejada MD FINDINGS: The patient had a moderate anterior tibial bow to the tibia with a tibial shaft fracture of the right leg and a mid-shaft fibular fracture of the right leg. INDICATIONS: This is a 60-year-old male with a closed proximal tibial shaft fracture with concomitant Paget's disease diagnosed on arrival. The patient had a past medical history of acid reflux and hypertension. He came to the [facility] emergency department after being trampled by a cow while loading it under a dinh on the September,. The patient had difficulty weightbearing and moving his right leg. However, he denied any numbness or tingling to the right lower extremity. The patient has Paget's disease with a moderate anterior tibial bow which required ordering special reamers and a special nail from [place] so his surgery was delayed two days secondary to the required instrumentation. He was indicated for a right tibial intramedullary nail. ANESTHESIA: GETA. TOURNIQUET TIME: 46 minutes. IV FLUIDS: Please see anesthesia report. IV ANTIBIOTICS: 3 gm of Ancef and 2 gm of TXA. ESTIMATED BLOOD LOSS: 100 mL CULTURES: None. SPECIMENS: None. DESCRIPTION OF PROCEDURE: The patient was met in the preoperative holding area where the patient's operative extremity was signed, the patient's consent was confirmed to be correct, and the patient's identity was confirmed to be correct. The patient was then transported to the operating theater where he was placed in the supine position on a radiolucent flat-top surgical bed with bone foam under the right lower extremity. Safety straps secured the patient to the bed. All bony prominences were well padded. The contralateral lower extremity SCD was placed. A timeout was called. This confirmed the correct patient, correct operative extremity and correct consent. All staff was in agreement. The patient was then draped in the usual sterile fashion. We began the procedure by obtaining AP and lateral in the region of the fracture. The fracture was provisionally reduced using a small bump distal to the fracture site and a blue towel proximal to the fracture site. It was reduced under AP and lateral views and we then began the procedure by placing a locking screw distal the tibial shaft fracture site, abutting the anterior cortex in order to ensure that our reamers would be posteriorized. Given the anterior bow secondary to his Paget's disease, it would be necessary to assure that our reaming was posterior so that we could maintain the fracture while accommodating his anterior tibial bow. Once this locking screw was placed, we then turned our attention to the surgical incision. The patient's right lower extremity was placed at 30 degrees of flexion. I made a skin incision just proximal to the patella in line with the longitudinal fibers of the quadriceps tendon. I incised the skin sharply and then made our way to the quadriceps tendon which was then incised sharply down to bone. This incision was approximately 2 inches in length. Once I had made my way to the suprapatellar aspect of the patient's right knee, I then bluntly entered the patellofemoral joint and ensured that there was no articular damage to the patellofemoral joint which there was none. I then placed a threaded guide pin just medial to the lateral tibial spine in line with the intramedullary canal and just anterior to the articular surface on the lateral view. This was inserted approximately 3 inches. Of note, prior to the placement of the threaded guide pin, I did place a trocar through the patellofemoral joint safely with a protective sleeve to ensure that the patellofemoral joint would be protected. After securing this trocar to the femur, we could now rest assured that it was safely placed and secure. We then placed an entry guide reamer over the threaded guide pin through the same passage as the threaded guide pin. This opened up the proximal aspect of the intramedullary canal. We continued our reduction. We then sequentially reamed from a 6 mm reamer to a 12 mm reamer. Through the entirety of the reaming process, we ensured that the blocking screw was working to posteriorize our reamers and that we had maintained an acceptable fracture reduction. At the conclusion of our reaming, we then placed a 10 mm nail and this was introduced with light taps of the mallet. Once this was placed distally, he had a moderate deformity of the fracture site and this was secondary to his anterior bow, accommodating a straight nail. Given the technical requirements, this would be difficult to correct. However, we removed the 10 mm nail and introduced a 9 mm nail so that the fracture deformity would be lessened which was now acceptable. After securing the 9 mm nail in position, we locked it distally with two distal interlocking screws using perfect [place]akiak technique and then used the internal compression mode after placing the proximal interlocking screw in order to provide compression across the fracture site. We then placed a second proximal interlocking screw followed by a third proximal interlocking screw, two of which were medial to lateral and one which was anteromedial to posterolateral. We inserted fluoroscopy throughout the case and our fracture was acceptable and that our screw lengths were ideal. At this point in time, we obtained final fluoroscopic imaging. We were satisfied with both the fracture reduction and compression and the implant placement. We removed the jig from the tibial nail and took final fluoroscopic imaging, assuring that we had a satisfactory tibial shaft fracture reduction, a fibular shaft fracture reduction and length, rotation and alignment of the fracture as well as our implant placement. We copiously irrigated all the surgical sites to include all the percutaneous incisions as well as the proximal quadriceps surgical incision. I then ensured that the patellofemoral joint was uninfected and uninjured after our reaming by palpating the articular surface of the patella as well as he distal femur. There was no damage to the articular surface of each. I then closed all the percutaneous incisions using 2-0 Vicryl for the dermal layer followed by nylon suture for the epidermis. I closed the quadriceps tendon using #2 braided polyethylene FiberWire and then I ran a Stratafix suture through the quadriceps tendon to ensure a watertight seal. I closed the dermal layer using 2-0 Vicryl and closed the skin using a running 3-0 nylon suture. I placed Xeroform followed by 4x4s and Tegaderms about all the surgical incisions. We then obtained final AP and lateral radiographs of the tibia postoperatively. The patient was then extubated without complication and transported to the postanesthesia care unit. The patient at this point in time will be 30% weightbearing, partial weightbearing to the right lower extremity for three weeks and then we will progress his weight bear status as tolerated to ensure that he has full weightbearing by 4-5 weeks postoperatively. The patient has range of motion about the right knee, ankle as tolerated which likely will be full. The patient will undergo physical therapy with use of a walker, crutches once he is transferred to the floor and transferred to the hospitalist service. The patient will be given pain medication per the hospitalist's request. This likely involves Percocet, Tylenol 3 followed by Rylee. The patient will follow up at the [facility] in two weeks for postoperative wound check. The patient's family will be educated of the aforementioned proceedings at that time.
[2020-10-17] MEDS: PERCOCET 5MG/325MG TAB PO PRN ×4 (03:28→15:17)
[2020-10-17 06:00] VITALS: BP 171/83
[2020-10-17] MEDS: PANTOPRAZOLE 40MG VIAL (C9113 PER 1) IV SCH (07:26)
[2020-10-17 08:48] LABS: HEMATOCRIT 37.7 % (42.0-52.0); HEMOGLOBIN 12.3 g/dl (13.5-17.5); MEAN CORPUSCULAR HEMOGLOBIN 32.8 pg (27.0-33.0); MEAN CORPUSCULAR HGB CONC 32.6 g/dl (32.0-36.5); MEAN CORPUSCULAR VOLUME 100.5 fl (80.0-96.0); PLATELET COUNT, AUTOMATED 250 10^3/uL (150-450); RED BLOOD COUNT 3.75 10^6/uL (4.30-6.10); WHITE BLOOD COUNT 10.7 10^3/uL (4.0-10.0)
[2020-10-17 08:58] LABS: BLOOD UREA NITROGEN 13 MG/DL (7-18); CALCIUM LEVEL 8.5 MG/DL (8.8-10.2); CARBON DIOXIDE LEVEL 27 MEQ/L (21-32); CHLORIDE LEVEL 105 MEQ/L (98-107); CREATININE FOR GFR 0.87 MG/DL (0.70-1.30); GLOMERULAR FILTRATION RATE > 60.0 (>49); GLUCOSE, FASTING 121 MG/DL (70-100); POTASSIUM SERUM 4.2 MEQ/L (3.5-5.1); SODIUM LEVEL 139 MEQ/L (136-145)
[2020-10-17] MEDS ORDERED: PERC5TAB12 PO (10:03)
[2020-10-17] MEDS ORDERED: SENO8.6T10 PO (10:03)
[2020-10-17] MEDS ORDERED: MIRA3350 PO (10:03)
--- NOTE | 2020-10-17 11:16 | DSES ---
"DISCHARGE SUMMARY DATE OF ADMISSION: 10/13/2020 DATE OF DISCHARGE: 10/17/2020 ORTHOPEDIC SURGEONS: Lukasz Hawkins M.D. and Alan Tejada MD PROCEDURE DURING THIS ADMISSION 10/15/2020: Right tibial nail intramedullary placement. PRIMARY DISCHARGE DIAGNOSES: Paget's Disease with anterior tibial bow of the right leg, right tibial shaft fracture, right mid shaft fibular fracture, traumatic injury causing right tib-fib fracture. DISCHARGE MEDICATIONS: 1. Percocet 1-2 tablets every 4 hours as needed. 2. MiraLax 17 grams daily as needed for constipation. 3. Senokot one tablet p.o. b.i.d. as needed for constipation. HOSPITAL COURSE: A 60-year-old male with closed proximal tibial shaft fracture, found to have Paget's Disease of the bone after x-rays and CT of the lower extremity, history of reflux and hypertension, had been trampled by a cow while loading it under a quarrel, had difficulty weightbearing and moving the right leg. He was seen in the Emergency Room, evaluated by Dr. Hawkins, who is not credentialed to proceed with tibial nail intramedullary placement. Dr. Tejada was sent and consulted. Patient underwent right tibial nail intramedullary replacement on 10/15/2020 after being medically optimized. Patient was found to have Paget's Disease of the bone with elevated alkaline phosphatase, but normal calcium levels and did not require Alendronate. He had not required blood transfusion postoperatively and was evaluated by physical therapy. During the hospital stay, pain was controlled on two tablets of Percocet, with breakthrough with I.V. morphine. No other issues during this admission. PHYSICAL EXAMINATION ON DISCHARGE: VITALS: Temp 97.9, pulse 84, respirations 18, blood pressure 171/83, 94% on room air. GENERAL: Patient is awake, alert, oriented to person, place and time. Answering questions appropriately. LUNGS: Clear to auscultation. No wheezing, rales or rhonchi. HEART: S1, S2, sinus rhythm. ABDOMEN: Soft, nontender, non-distended. Positive bowel sounds. EXTREMITIES: Some swelling of the right lower extremity. Multiple areas of ecchymosis. Dorsalis pedis, posterior tibialis noted. SKIN: Warm, dry and well perfused, pink in color. LABORATORY DATA ON DISCHARGE: White count 10.7, hemoglobin 12.3, hematocrit 37.7, platelet count 250,000. Sodium 139, potassium 4.2, chloride 105, bicarb 27, BUN 13, creatinine 0.87, glucose 121. IMAGING STUDIES: CT extremity 10/13/2020 revealed Paget's Disease of the bone, affecting right tibia from distal diametaphyseal region proximally to the tibial plateau, transverse posteriorly displaced fracture of proximal tibial diaphysis, comminuted nondisplaced mid shaft fibular fracture. Chest x-ray no acute cardiopulmonary process. TIME SPENT ON DISCHARGE: 30 minutes. DISCHARGE INSTRUCTIONS: Activity level. DVT prophylaxis per Dr. Tejada. Primary care physician appointment within five days |and postop management per Dr. Tejada and follow-up appointment within five days of discharge. [facility]"
[2020-10-17 14:00] VITALS: BP 168/76
== END 2020-10-17 15:19 | disposition home or self-care (01) | DRG 313 ==
LOC: M ED 11:48 → EDBD 11:48 → M ED INP 15:38 → M MS5PR 17:15
PROVIDERS: ADMIT Internal Medicine; ATTEND General Practice
PROC: 0QSJ04Z Reposition Right Fibula with Internal Fixation Device, Open Approach (ICD-10-PCS; 2020-10-15)
PROC: 0QSG04Z Reposition Right Tibia with Internal Fixation Device, Open Approach (ICD-10-PCS; principal; 2020-10-15 17:00)
DX: S82.491A Other fracture of shaft of right fibula, initial encounter for closed fracture (principal); I10 Essential (primary) hypertension; M88.9 Osteitis deformans of unspecified bone; K21.9 Gastro-esophageal reflux disease without esophagitis; W55.89XA Other contact with other mammals, initial encounter; S82.191A Other fracture of upper end of right tibia, initial encounter for closed fracture

== ENCOUNTER → 2020-10-23 | Outpatient (CLI) | payer OTHER ==
[~2020-10-23] MED LIST changes: +MIRA3350 PO; +PERC5TAB12 PO; +ROLA1CHW PO; +SENO8.6T10 PO
--- NOTE | 2020-10-23 10:13 | REP ---
INDICATION: F/U FX. COMPARISON: Intraoperative and postoperative images from right tibial ORIF 10/15/2020 TECHNIQUE: Two views. FINDINGS: There is intramedullary atiya extending from the tibial plateau through the distal tibial diametaphysis. In the junction of the middle and upper 1/3 shaft of the tibia there is a transverse fracture. There are 3 screws transfixing the intramedullary atiya above and below the fracture towards each end of the IM atiya. Alignment unchanged. The 3rd screw from the bottom extends transversely in the tibia and does not involve the IM atiya. There is a transverse fracture with butterfly fragment in the mid shaft of the fibula with its alignment also unchanged. IMPRESSION: Status post ORIF with an intramedullary atiya fixation of the tibia after transverse fracture through the proximal 3rd shaft. The alignment of the fragments is unchanged. Mid shaft mildly comminuted fibular fracture is also noted and its alignment unchanged. <Electronically signed by Jefferson Herrera > 10/23/20 [id number]
== END ==
LOC: M SOG 08:42
PROVIDERS: ATTEND Orthopaedic Surgery Sports Medicine
DX: Z47.89 Encounter for other orthopedic aftercare (principal); Z96.7 Presence of other bone and tendon implants

== ENCOUNTER → 2020-11-14 | Outpatient (REF) | payer OTHER ==
[2020-11-14 15:00] LABS: % LABILE ALKALINE PHOSPHATASE 74.18 %
[2020-11-18 01:06] LABS: CREATININE URINE 167.5 mg/dL (Not Estab.)
== END ==
LOC: M LABDRWAD 12:48
PROVIDERS: ATTEND Internal Medicine Endocrinology, Diabetes & Metabolism
DX: M88.89 Osteitis deformans of multiple sites (principal)

== ENCOUNTER → 2020-11-19 | Outpatient (CLI) | payer OTHER ==
--- NOTE | 2020-11-19 11:45 | REP ---
INDICATION: F/U FX. COMPARISON: Comparison radiographs of the right tibia and fibula are from October 23, 2020.. TECHNIQUE: AP and lateral views. FINDINGS: Two views of the right tibia and fibula demonstrate intramedullary atiya in place in the tibia. 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 Some bony hypertrophy is seen at the midshaft fibular fracture. Tibial and fibular fracture lucencies persist. There is periosteal reaction at the tibial fracture posteriorly. IMPRESSION: Healing tib fib fractures. <Electronically signed by Gwyn Dougherty > 11/19/20 [id number]
== END ==
LOC: M SOG 09:49
PROVIDERS: ATTEND Orthopaedic Surgery
DX: S82.201D Unspecified fracture of shaft of right tibia, subsequent encounter for closed fracture with routine healing (principal); X58.XXXD Exposure to other specified factors, subsequent encounter; Y92.89 Other specified places as the place of occurrence of the external cause

== ENCOUNTER → 2020-12-05 | Outpatient (CLI) | payer SELFPAY ==
--- NOTE | 2020-12-08 11:18 | REP ---
INDICATION: QUESTION OF PAGET'S DISEASE. COMPARISON: None. TECHNIQUE: AP view bilateral humeri. FINDINGS: There is no evidence of acute fracture, dislocation or intrinsic bone disease. There is mild narrowing and spurring at the acromioclavicular joints bilaterally. IMPRESSION: No evidence of Paget's disease. <Electronically signed by Antwon Hardin > 12/08/20 [id number]
--- NOTE | 2020-12-08 11:18 | REP ---
INDICATION: QUESTION OF PAGET'S DISEASE. COMPARISON: None. TECHNIQUE: AP view bilateral hips hips. FINDINGS: There is no evidence of acute fracture, dislocation or intrinsic bone disease. There are very mild arthritic changes at both hip joints. IMPRESSION: No evidence of Paget's disease of the hips. <Electronically signed by Antwon Hardin > 12/08/20 [id number]
--- NOTE | 2020-12-08 11:18 | REP ---
INDICATION: QUESTION OF PAGET'S DISEASE. COMPARISON: None. TECHNIQUE: AP view bilateral femurs. FINDINGS: There is no evidence of acute fracture, dislocation or intrinsic bone disease. There is again evidence of Paget's disease of the right tibia with metallic internal fixation. IMPRESSION: No abnormalities of bilateral femurs. <Electronically signed by Antwon Hardin > 12/08/20 0249
--- NOTE | 2020-12-08 13:52 | REP ---
INDICATION: Question Paget's disease. COMPARISON: No prior similar studies TECHNIQUE: Single AP view of the skull. FINDINGS: Single-view skull appears unremarkable. No definite evidence of bony thickening or focal abnormal bone density. IMPRESSION: Single-view skull appears unremarkable. No definite evidence of bony thickening or focal abnormal bone density. <Electronically signed by Leland Miller > 12/08/20 [id number]
== END ==
LOC: M SOG 10:08
PROVIDERS: ATTEND Internal Medicine Endocrinology, Diabetes & Metabolism
DX: M88.89 Osteitis deformans of multiple sites (principal)

== ENCOUNTER → 2021-01-20 | Outpatient (CLI) | payer SELFPAY ==
--- NOTE | 2021-01-20 16:17 | REP ---
INDICATION: F/U FX. COMPARISON: 12/25/2020 TECHNIQUE: AP and lateral views of the right tibia/fibula FINDINGS: Callus formation and periosteal reaction along with cortical thickening is again noted about the tibial and fibular shaft fractures and similar to prior examination. Intramedullary atiya through the tibial shaft in stable position. IMPRESSION: Relatively stable appearance. <Electronically signed by Thomas Vasquez > 01/20/21 [id number]
== END ==
LOC: M SOG 15:34
PROVIDERS: ATTEND Orthopaedic Surgery
DX: S82.231D Displaced oblique fracture of shaft of right tibia, subsequent encounter for closed fracture with routine healing (principal)

== ENCOUNTER → 2021-02-03 | Outpatient (REF) | payer OTHER ==
[2021-02-03 17:03] LABS: BLOOD UREA NITROGEN 12 MG/DL (7-18); CALCIUM LEVEL 8.8 MG/DL (8.8-10.2); CARBON DIOXIDE LEVEL 30 MEQ/L (21-32); CHLORIDE LEVEL 106 MEQ/L (98-107); CREATININE FOR GFR 0.95 MG/DL (0.70-1.30); GLOMERULAR FILTRATION RATE > 60.0 (>49); GLUCOSE, FASTING 110 MG/DL (70-100); POTASSIUM SERUM 4.3 MEQ/L (3.5-5.1); SODIUM LEVEL 140 MEQ/L (136-145)
== END ==
LOC: M LABDRWAD 16:16
PROVIDERS: ATTEND Internal Medicine Endocrinology, Diabetes & Metabolism
DX: M88.89 Osteitis deformans of multiple sites (principal)

== ENCOUNTER → 2021-04-16 | Outpatient (CLI) | payer OTHER ==
--- NOTE | 2021-04-16 09:01 | REP ---
INDICATION: FX. COMPARISON: 01/20/2021 TECHNIQUE: AP, lateral, bilateral oblique views of the right tibia/fibula. FINDINGS: Transverse healing fracture through the mid tibial shaft with increased callus formation and periosteal reaction as compared to prior examination. Intramedullary atiya through the tibia is stable in appearance. Healing fracture of the mid fibular shaft with increased callus formation and periosteal reaction is also identified. IMPRESSION: Healing fractures. <Electronically signed by Thomas Vasquez > 04/16/21 0857
== END ==
LOC: M SOG 08:14
PROVIDERS: ATTEND Orthopaedic Surgery
DX: S82.201D Unspecified fracture of shaft of right tibia, subsequent encounter for closed fracture with routine healing (principal)

== ENCOUNTER → 2021-05-25 | Outpatient (CLI) | payer OTHER ==
[2021-05-25 15:45] LABS: PTH INTACT 108.1 PG/ML (18.5-88.0); TOTAL 25(OH) VITAMIN D 35.2 NG/ML (30.0-100.0)
== END ==
LOC: M LABDRWAD 13:45
PROVIDERS: ATTEND Internal Medicine Endocrinology, Diabetes & Metabolism
DX: E55.9 Vitamin D deficiency, unspecified (principal); E21.1 Secondary hyperparathyroidism, not elsewhere classified; M88.89 Osteitis deformans of multiple sites

== ENCOUNTER → 2021-10-28 | Outpatient (REF) | payer OTHER ==
[~2021-10-28] MED LIST changes: +LOSA50TA28 PO; -LOSA50TA88 PO
[2021-10-29 14:03] LABS: PTH INTACT 59.1 PG/ML (18.5-88.0); TOTAL 25(OH) VITAMIN D 35.2 NG/ML (30.0-100.0)
== END ==
LOC: M LABDRWAD 12:24
PROVIDERS: ATTEND Internal Medicine Endocrinology, Diabetes & Metabolism
DX: M88.89 Osteitis deformans of multiple sites (principal); E55.9 Vitamin D deficiency, unspecified

== ENCOUNTER → 2021-12-03 | Outpatient (REF) | payer BC ==
[2021-12-03 13:37] LABS: HEMATOCRIT 43.4 % (42.0-52.0); HEMOGLOBIN 14.3 g/dl (13.5-17.5); MEAN CORPUSCULAR HEMOGLOBIN 33.9 pg (27.0-33.0); MEAN CORPUSCULAR HGB CONC 32.9 g/dl (32.0-36.5); MEAN CORPUSCULAR VOLUME 102.8 fl (80.0-96.0); PLATELET COUNT, AUTOMATED 285 10^3/uL (150-450); RED BLOOD COUNT 4.22 10^6/uL (4.30-6.10); WHITE BLOOD COUNT 6.9 10^3/uL (4.0-10.0)
[2021-12-03 14:21] LABS: ALBUMIN 3.8 GM/DL (3.2-5.2); ALT/SGPT 40 U/L (12-78); BILIRUBIN,TOTAL 0.4 MG/DL (0.2-1.0); BLOOD UREA NITROGEN 14 MG/DL (7-18); CALCIUM LEVEL 8.8 MG/DL (8.8-10.2); CARBON DIOXIDE LEVEL 27 MEQ/L (21-32); CHLORIDE LEVEL 107 MEQ/L (98-107); CHOLESTEROL LEVEL 181 MG/DL (<200); CHOLESTEROL RISK RATIO 5.027 (<5); CREATININE FOR GFR 0.86 MG/DL (0.70-1.30); GLOMERULAR FILTRATION RATE > 60.0 (>49); GLUCOSE, FASTING 112 MG/DL (70-100); HDL CHOLESTEROL 36 MG/DL (>40); LDL CHOLESTEROL 126 MG/DL (<100); NON-HDL-C 145 MG/DL; POTASSIUM SERUM 4.1 MEQ/L (3.5-5.1); PROSTATIC SPECIFIC AG MONITOR 1.16 NG/ML (< 4.00); SODIUM LEVEL 141 MEQ/L (136-145); TESTOSTERONE 273 NG/DL (241-827); TOTAL PROTEIN 6.8 GM/DL (6.4-8.2); TRIGLYCERIDES LEVEL 97 MG/DL (<150)
[2021-12-03 14:34] LABS: HEMOGLOBIN A1c 6.2 %
== END ==
LOC: M LABDRWAD 12:33
PROVIDERS: ATTEND Family Medicine
DX: I10 Essential (primary) hypertension (principal); R53.83 Other fatigue; E03.9 Hypothyroidism, unspecified

== ENCOUNTER → 2022-06-18 | Outpatient (CLI) | payer BC ==
[2022-06-18 13:59] LABS: BLOOD UREA NITROGEN 16 MG/DL (7-18); CALCIUM LEVEL 9.1 MG/DL (8.8-10.2); CARBON DIOXIDE LEVEL 28 MEQ/L (21-32); CHLORIDE LEVEL 107 MEQ/L (98-107); CREATININE FOR GFR 1.15 MG/DL (0.70-1.30); GLOMERULAR FILTRATION RATE > 60.0 (>49); GLUCOSE, FASTING 120 MG/DL (70-100); POTASSIUM SERUM 4.4 MEQ/L (3.5-5.1); SODIUM LEVEL 138 MEQ/L (136-145)
== END ==
LOC: M LABDRWAD 09:41
PROVIDERS: ATTEND Internal Medicine Endocrinology, Diabetes & Metabolism
DX: M88.89 Osteitis deformans of multiple sites (principal)

== ENCOUNTER → 2022-06-24 | Outpatient (CLI) | payer BC ==
[2022-06-24 09:01] LABS: HEMATOCRIT 42.8 % (42.0-52.0); HEMOGLOBIN 14.1 g/dl (13.5-17.5); MEAN CORPUSCULAR HEMOGLOBIN 34.1 pg (27.0-33.0); MEAN CORPUSCULAR HGB CONC 32.9 g/dl (32.0-36.5); MEAN CORPUSCULAR VOLUME 103.4 fl (80.0-96.0); PLATELET COUNT, AUTOMATED 280 10^3/uL (150-450); RED BLOOD COUNT 4.14 10^6/uL (4.30-6.10); WHITE BLOOD COUNT 6.3 10^3/uL (4.0-10.0)
[2022-06-24 09:31] LABS: ALT/SGPT 32 U/L (12-78); BILIRUBIN,TOTAL 0.5 MG/DL (0.2-1.0); BLOOD UREA NITROGEN 12 MG/DL (7-18); CALCIUM LEVEL 8.8 MG/DL (8.8-10.2); CARBON DIOXIDE LEVEL 29 MEQ/L (21-32); CHLORIDE LEVEL 106 MEQ/L (98-107); CHOLESTEROL LEVEL 142 MG/DL (<200); CREATININE FOR GFR 0.97 MG/DL (0.70-1.30); GLOMERULAR FILTRATION RATE > 60.0 (>49); GLUCOSE, FASTING 123 MG/DL (70-100); HDL CHOLESTEROL 39 MG/DL (>40); POTASSIUM SERUM 4.3 MEQ/L (3.5-5.1); SODIUM LEVEL 139 MEQ/L (136-145); TRIGLYCERIDES LEVEL 71 MG/DL (<150)
[2022-06-24 09:32] LABS: ALBUMIN 3.6 GM/DL (3.2-5.2); CHOLESTEROL RISK RATIO 3.641 (<5); LDL CHOLESTEROL 89 MG/DL (<100); NON-HDL-C 103 MG/DL; PROSTATIC SPECIFIC AG MONITOR 0.99 NG/ML (< 4.00); TOTAL PROTEIN 7.1 GM/DL (6.4-8.2)
[2022-06-24 10:21] LABS: TESTOSTERONE 316 NG/DL (241-827)
[2022-06-24 10:27] LABS: HEMOGLOBIN A1c 6.3 %
== END ==
LOC: M LAB 08:03
PROVIDERS: ATTEND Family Medicine
DX: R53.83 Other fatigue (principal); I10 Essential (primary) hypertension; E03.9 Hypothyroidism, unspecified

== ENCOUNTER → 2023-02-09 | Outpatient (CLI) | payer BC ==
[2023-02-09 08:12] LABS: HEMATOCRIT 45.3 % (42.0-52.0); HEMOGLOBIN 14.8 g/dl (13.5-17.5); MEAN CORPUSCULAR HEMOGLOBIN 33.9 pg (27.0-33.0); MEAN CORPUSCULAR HGB CONC 32.7 g/dl (32.0-36.5); MEAN CORPUSCULAR VOLUME 103.7 fl (80.0-96.0); PLATELET COUNT, AUTOMATED 250 10^3/uL (150-450); RED BLOOD COUNT 4.37 10^6/uL (4.30-6.10); WHITE BLOOD COUNT 7.2 10^3/uL (4.0-10.0)
[2023-02-09 08:42] LABS: PROSTATIC SPECIFIC AG MONITOR 0.69 NG/ML (< 4.00); URIC ACID 5.3 MG/DL (3.7-9.2)
[2023-02-09 08:45] LABS: ALBUMIN 3.7 G/DL (3.2-5.2); ALKALINE PHOSPHATASE 142 U/L (46-116); ALT/SGPT 39 U/L (7.0-40); AST/SGOT 19 U/L (<34); BILIRUBIN,TOTAL 0.2 MG/DL (0.3-1.2); BLOOD UREA NITROGEN 14 MG/DL (9-23); CALCIUM LEVEL 8.7 MG/DL (8.3-10.6); CARBON DIOXIDE LEVEL 30 MMOL/L (20-31); CHLORIDE LEVEL 109 MMOL/L (98-107); CHOLESTEROL LEVEL 150 MG/DL (<200); CHOLESTEROL RISK RATIO 4.29 (<5); CREATININE FOR GFR 1.03 MG/DL (0.70-1.30); GLOMERULAR FILTRATION RATE > 60.0 (>49); GLUCOSE, FASTING 123 MG/DL (74-106); HDL CHOLESTEROL 34.9 MG/DL (>40); LDL CHOLESTEROL 79.1 MG/DL (<100); NON-HDL-C 115.1 MG/DL; POTASSIUM SERUM 4.5 MMOL/L (3.5-5.1); SODIUM LEVEL 141 MMOL/L (136-145); TOTAL PROTEIN 6.6 G/DL (5.7-8.2); TRIGLYCERIDES LEVEL 180 MG/DL (<150)
[2023-02-09 08:47] LABS: TESTOSTERONE 388 NG/DL (241-827); THYROID STIMULATING HORMONE 2.088 uIU/ML (0.55-4.78)
[2023-02-09 09:06] LABS: HEMOGLOBIN A1c 6.2 % (4.0-6.0)
== END ==
LOC: M LAB 07:40
PROVIDERS: ATTEND Family Medicine
DX: I10 Essential (primary) hypertension (principal); R53.82 Chronic fatigue, unspecified

== ENCOUNTER → 2024-01-06 | Outpatient (CLI) | payer BC ==
[2024-01-06 08:40] LABS: HEMATOCRIT 45.5 % (42.0-52.0); MEAN CORPUSCULAR HEMOGLOBIN 33.9 pg (27.0-33.0); MEAN CORPUSCULAR VOLUME 102.7 fl (80.0-96.0); PLATELET COUNT, AUTOMATED 246 10^3/uL (150-450); RED BLOOD COUNT 4.43 10^6/uL (4.30-6.10); WHITE BLOOD COUNT 6.1 10^3/uL (4.0-10.0)
[2024-01-06 09:06] LABS: HEMOGLOBIN A1c 6.1 % (4.0-6.0)
[2024-01-06 09:07] LABS: ALBUMIN 3.6 G/DL (3.2-5.2); ALKALINE PHOSPHATASE 148 U/L (46-116); ALT/SGPT 35 U/L (7.0-40); AST/SGOT 19 U/L (<34); BILIRUBIN,TOTAL 0.3 MG/DL (0.3-1.2); BLOOD UREA NITROGEN 13 MG/DL (9-23); CALCIUM LEVEL 8.7 MG/DL (8.3-10.6); CARBON DIOXIDE LEVEL 31 MMOL/L (20-31); CHLORIDE LEVEL 106 MMOL/L (98-107); CREATININE FOR GFR 0.85 MG/DL (0.70-1.30); GLOMERULAR FILTRATION RATE > 60.0 (>49); GLUCOSE, FASTING 117 MG/DL (74-106); POTASSIUM SERUM 4.4 MMOL/L (3.5-5.1); PSA SCREENING 1.11 NG/ML (< 4.00); SODIUM LEVEL 140 MMOL/L (136-145); TOTAL PROTEIN 6.7 G/DL (5.7-8.2)
[2024-01-06 09:09] LABS: THYROID STIMULATING HORMONE 1.979 uIU/ML (0.55-4.78)
[2024-01-06 09:10] LABS: TESTOSTERONE 401 NG/DL (241-827); TOTAL 25(OH) VITAMIN D 53.5 NG/ML (20.0-100.0)
== END ==
LOC: M LAB 07:25
PROVIDERS: ATTEND Family Medicine
DX: I10 Essential (primary) hypertension (principal); R53.83 Other fatigue; E03.9 Hypothyroidism, unspecified